=== PATIENT | male | born 1955 | race Hispanic/Latino ===

== ENCOUNTER → 2024-06-26 | Outpatient (CLI) | payer OTHER ==
[~2024-06-26] MED LIST: ALBU0.63 IH; BUSP7.5T7 PO; GABA300S3 PO; INSNPH SQ; INSREG SQ; LISI40TA9 PO; LORA10TA7 PO; METF-444 PO; OSEL75 PO; PRED20TA3 PO; ROSU5TAB51 PO
--- NOTE | 2024-06-26 11:24 | HMCIMG ---
KNEE 3VWS LT HISTORY: Knee pain COMPARISON: None TECHNIQUE: 3 images of left knee were obtained. FINDINGS: There is no acute displaced fracture or dislocation. There is soft tissue swelling. Degenerative changes are seen. IMPRESSION: 1. Findings as described above.
--- NOTE | 2024-06-26 11:24 | HMCIMG ---
LUMBAR SPINE 2-3VWS HISTORY: Low back pain COMPARISON: None FINDINGS: 3 images of lumbar spine were obtained. Grade 1 anterolisthesis is seen at the L4-5 level. Disc space narrowing is seen at the L5-S1 level. Anterior osteophytes are seen. There are degenerative changes with spondylosis. There is straightening of normal lordotic curvature which may be related to muscle spasm or positioning. No loss of vertebral height is seen. No fracture or dislocation is seen. Degenerative changes are seen. IMPRESSION: 1. No fracture is seen. DJD.
== END | disposition home or self-care (01) ==
LOC: LAB 09:40
PROVIDERS: ATTEND Internal Medicine
DX: M17.12 Unilateral primary osteoarthritis, left knee (principal); M47.816 Spondylosis without myelopathy or radiculopathy, lumbar region; M48.07 Spinal stenosis, lumbosacral region; M25.78 Osteophyte, vertebrae
CPT/HCPCS: 72100; 73562

== ENCOUNTER → 2024-08-29 | Outpatient (CLI) | payer OTHER ==
[~2024-08-29] MED LIST changes: -ALBU0.63 IH; +ALBU90AE IH; +FLUT16H NS; -GABA300S3 PO; +LEVO-70 PO; +METR-172 PO; +NPH,100V11 SQ; -OSEL75 PO; -PRED20TA3 PO
[2024-08-29 21:49] VITALS: PULSE 60; RESP 20
[2024-08-29 22:30] VITALS: PULSE 52; RESP 10
[2024-08-29 23:00] VITALS: PULSE 56; RESP 10
[2024-08-29 23:30] VITALS: PULSE 52; RESP 16
[2024-08-30] VITALS (9 sets, daily range): PULSE 48–58; RESP 4–18
== END | disposition home or self-care (01) ==
LOC: SLP 19:36
PROVIDERS: ATTEND Internal Medicine
DX: G47.33 Obstructive sleep apnea (adult) (pediatric) (principal); I13.10 Hypertensive heart and chronic kidney disease without heart failure, with stage 1 through stage 4 chronic kidney disease, or unspecified chronic kidney disease; E11.22 Type 2 diabetes mellitus with diabetic chronic kidney disease; N18.4 Chronic kidney disease, stage 4 (severe); R35.0 Frequency of micturition; E66.9 Obesity, unspecified
CPT/HCPCS: 95810

== ENCOUNTER → 2024-09-03 | Outpatient (CLI) | payer OTHER ==
[2024-09-03] VITALS (13 sets, daily range): PULSE 54–63; RESP 9–19
[2024-09-04] VITALS (12 sets, daily range): PULSE 52–64; RESP 14–21
== END | disposition home or self-care (01) ==
LOC: SLP 18:48
PROVIDERS: ATTEND Internal Medicine
DX: G47.33 Obstructive sleep apnea (adult) (pediatric) (principal); G47.01 Insomnia due to medical condition; I13.10 Hypertensive heart and chronic kidney disease without heart failure, with stage 1 through stage 4 chronic kidney disease, or unspecified chronic kidney disease; N18.9 Chronic kidney disease, unspecified
CPT/HCPCS: 95811

== ENCOUNTER 2025-01-08 07:52 | Observation (INO) | payer OTHER ==
[~2025-01-08] VITALS: Ht 157.5 cm; Wt 98.6 kg
--- NOTE | 2025-01-08 08:16 | ERN ---
General Chief Complaint: Fever Stated Complaint: FEVER Time Seen by MD: 07:58 Source: patient, family History of Present Illness Initial Comments Patient is a 69 y/o male here for evaluation of fever and diarrhea . Patient states he has been having fever since yesterday aswell as several episodes of diarrhea. Patient has hx of htn, dm, and hypercholesteremia. Allergies: Coded Allergies: No Known Drug Allergies (Unverified Allergy, Unknown, 12/15/23) Home Meds Active Scripts Metronidazole (Metronidazole) 500 Mg Tablet, 1 TAB PO BID for 5 Days, #10 TAB 0 Refills Prov:JONATHAN COREA MD 07/18/24 Levofloxacin (Levofloxacin) 500 Mg Tablet, 1 TAB PO DAILY for 5 Days, #5 TAB 0 Refills Prov:JONATHAN COREA MD 07/18/24 Fluticasone Propionate (Flonase Nasal [place]) 50 Mcg/Actuation [place], 2 SPRAY NS DAILY PRN for allergies for 30 Days, #16 GM 0 Refills Prov:JONATHAN COREA MD 07/11/24 Albuterol Sulfate (Proair Respiclick) 90 Mcg Aer.pow.ba, 2 PUFF IH Q4HPRN PRN for shortness of breath for 90 Days, #1 EACH 0 Refills Prov:JONATHAN COREA MD 07/11/24 NPH, Human Insulin Isophane (Novolin N) 100 Unit/Ml Vial, 40 UNITS SQ PM, #3 VIAL Prov:JONATHAN COREA MD 07/11/24 NPH, Human Insulin Isophane (Humulin/Novolin NPH) 100 Unit/Ml Inj, 45 UNITS SQ AM, #30 ML Prov:JONATHAN COREA MD 07/11/24 Insulin Regular, Human (Novolin R) 100 Unit/Ml Vial, 15 UNITS SQ TID, #30 ML Prov:JONATHAN COREA MD 07/11/24 Metformin HCl (Metformin HCl) 500 Mg Tablet, 500 MG PO BID, #60 TAB 1 Refill Prov:JONATHAN COREA MD 12/16/23 Loratadine (Loratadine) 10 Mg Tablet, 10 MG PO DAILY PRN for NASAL CONGESTION, #30 TAB 1 Refill Prov:JONATHAN COREA MD 12/16/23 Reported Medications Rosuvastatin Calcium (Rosuvastatin Calcium) 5 Mg Tablet, 1 TAB PO DAILY 12/15/23 Buspirone HCl (Buspirone HCl) 7.5 Mg Tablet, 1 TAB PO BID 12/15/23 Lisinopril (Lisinopril) 40 Mg Tablet, 1 TAB PO DAILY 12/15/23 Past Medical History Past Medical History: Diabetes-Type II, High Cholesterol, Hypertension Past Surgical History: Cholecystectomy Results Laboratory and Microbiology Lab and Micro Result Laboratory Tests Test 01/08/25 08:14 01/08/25 08:41 01/08/25 09:41 White Blood Count 9.9 K/uL (4.8-10.8) Red Blood Count 4.95 MIL/uL (4.50-6.20) Hemoglobin 13.0 g/dL (14.0-18.0) L Hematocrit 40.9 % (42-54) L Mean Corpuscular Volume 82.6 fL (79-99) Mean Corpuscular Hemoglobin 26.3 pg (27.0-33.0) L Mean Corpuscular Hemoglobin Concent 31.8 g/dL (32.0-36.0) L Red Cell Distribution Width 13.7 % (11.0-15.5) Platelet Count 290 K/uL (130-400) Mean Platelet Volume 9.3 fL (7.5-10.5) Immature Granulocyte % (Auto) 0.4 % (0-1) Neutrophils (%) (Auto) 88.5 % (40.0-77.0) H Lymphocytes (%) (Auto) 3.8 % (21.0-51.0) L Monocytes (%) (Auto) 7.1 % (3.0-13.0) Eosinophils (%) (Auto) 0.0 % (0.0-8.0) Basophils (%) (Auto) 0.2 % (0.0-5.0) Neutrophils # (Auto) 8.8 K/uL (1.8-7.7) H Lymphocytes # (Auto) 0.4 K/uL (1.0-4.8) L Monocytes # (Auto) 0.7 K/uL (0.1-1.0) Eosinophils # (Auto) 0.00 K/uL (0.00-0.70) Basophils # (Auto) 0.02 K/uL (0.00-0.20) Absolute Immature Granulocyte (auto 0.04 K/uL (0-1) Nucleated Red Blood Cells 0.0 % (0.0-0.19) White Cell Morphology Comment See comments Sodium Level 136 mmol/L (136-145) Potassium Level 4.1 mmol/L (3.5-5.1) Chloride Level 100 mmol/L (101-111) L Carbon Dioxide Level 28 mmol/L (21-32) Blood Urea Nitrogen 13 mg/dL (7-18) Creatinine 0.8 mg/dL (0.5-1.3) Glomerular Filtration Rate Calc 95 mL/min (>90) Random Glucose 165 mg/dL (70-105) H Lactic Acid Level 1.1 mmol/L (0.8-2.5) Total Calcium 8.4 mg/dL (8.5-10.1) L Total Creatine Kinase 88 U/L (21-232) # Troponin I High Sensitivity 63 ng/L (4-75) Influenza Type A Antigen Negative For Type A Influenza Type B Antigen Negative For Type B SARS-CoV-2, RNA, NAAT NEGATIVE SARS CoV-2 Group A Streptococcus Rapid negative (NEGATIVE) Urine Color COLORLESS (YELLOW) Urine Appearance CLEAR (CLEAR) Urine pH 6.5 (5.0-8.0) Urine Specific [place] 1.005 (1.001-1.031) Urine Protein NEGATIVE mg/dL (NEGATIVE) Urine Glucose (UA) NEGATIVE mg/dL (NEGATIVE) Urine Ketones NEGATIVE mg/dL (NEGATIVE) Urine Occult Blood NEGATIVE (NEGATIVE) Urine Nitrate NEGATIVE (NEGATIVE) Urine Bilirubin NEGATIVE mg/dL (NEGATIVE) Urine Urobilinogen 0.2 mg/dL (0.2-1.0) Urine Leukocyte Esterase NEGATIVE Jose/uL Labs Reviewed?: Yes EKG/XRAY/US/CT/MRI X-RAY Comment [address] [address] IMAGING REPORT Signed PATIENT: MARLENA DELATORRE MR#: [id number] : 1955 SEX: M AGE: 69 LOCATION: [facility] ORDER [id number] STATUS: REG REPORT#: [id number] SERVICE 0 REASON: fever ORDERING PHYSICIAN: DREA CARDENAS MD PROCEDURE: CXR1VW - CHEST 1VW CHEST 1VW HISTORY: Fever of unknown origin COMPARISON: 07/15/2024 FINDINGS: A frontal projection of the chest was obtained. No acute pulmonary infiltrates is seen. The heart is borderline enlarged. All the lines and tubes are again seen in place. No evidence of aortic calcification is seen. IMPRESSION: 1. No acute pulmonary infiltrate is seen. DICTATED BY: KALIN GARVEY MD DATE: 01/08/25905 ELECTRONICALLY SIGNED BY: KALIN GARVEY MD DATE: 01/08/25915 [facility] MDM: Differential diagnosis: Seizures, sepsis, viral gastroenteritis, Rationale: Tests considered and ordered secondary to shared decision making include: labs, ECG and radiology Previous outside records reviewed: Old ER visits. Risk of complication and/or morbidity or mortality of patient management: None Medications-Per medication reconciliation Need for hospitalization: Patient does meet criteria for hospitalization. Need for emergency major/minor surgery: No There are no social concerns with this patient. Prescription drug management Prescriptions will include symptomatic care Patient's prior external medical records from other ER visits were reviewed by me as indicated. Prior testing and results from previous visits were reviewed. Prior tests were taken into account with medical decision making and resource utilization, independent historian/historians were used to obtain complete medical history. I independently interpreted the test that were performed, results were reviewed by me and considered findings on radiology if ordered. Medical management and examination interpretation discussions were had by mo wi other qualified healthcare professionals as indicated for the patient's care. Patient will be admitted under the care of hospitalist group for ongoing management of seizures and gastroenteritis. Patient became hypotensive after 30 mL/kilos of IV fluid resuscitation was started on Levophed blood pressure improved. ED Course Orders Procedure Category Date Status Time Cbc With Differential LAB 01/08/25 Complete 08: Blood Cult ASHELY 01/08/25 In Process 08:01 Urinalysis Profile LAB 01/08/25 Complete 08: Culture Urine ASHELY 01/08/25 In Process 08:01 0.9%Nacl 1000ml (Ns PHA 01/08/25 In Process 1000ml) 08:30 Creatine Kinase, Total LAB 01/08/25 Complete 08: Troponin I High LAB 01/08/25 Complete Sensitivity 08:01 Lactic Acid LAB 01/08/25 Complete 08:01 Basic Metabolic Panel LAB 01/08/25 Complete 08:01 Influenza Type A & B, LAB 01/08/25 Complete Rapid 08:01 Covid Rna Naat LAB 01/08/25 Complete 08:01 Rapid (Group A Strep) LAB 01/08/25 Complete 08:01 Ceftriaxone 1g Vial PHA 01/08/25 Complete (Rocephine 1g Inj) 08:30 Chest 1vw RAD 01/08/25 Resulted 08:01 Norepinephrin 4mg/Ns PHA 01/08/25 In Process 250ml (Levophed 4mg 09:30 Acetaminophen 500mg PHA 01/08/25 Complete Tab (Tylenol 500mg T 09:30 Current Medications Medications (Trade) Dose Ordered Sig/Jarret Route PRN Reason Start Time Stop Time Status Last Admin Dose Admin Acetaminophen (TYLenol 500MG TAB) 1,000 mg ONCE ONCE PO 01/08/25 09:30 01/08/25 09:31 DC 01/08/25 09:13 Ceftriaxone Sodium (ROCEphine 1G INJ) 1 gm ONCE ONCE IVPB 01/08/25 08:30 01/08/25 08:31 DC 01/08/25 08:18 Norepinephrine 250 ml @ 0 mls/hr PROTOCOL IV 01/08/25 09:30 02/07/25 09:29 01/08/25 09:18 Sodium Chloride 2,967 ml @ 989 mls/hr ONCE ONCE IV 01/08/25 08:30 01/08/25 11:29 01/08/25 08:18 Vital Signs Date Time Temp Pulse Resp B/P (MAP) Pulse Ox O2 Delivery O2 Flow Rate FiO2 01/08/25 09:18 93/33 01/08/25 09:18 102.0 81 19 90/29 94 Room Air* 0 21 01/08/25 09:13 102.0 01/08/25 08:15 102.0 105 21 74/30 94 Room Air* 0 01/08/25 07:54 102.9 111 18 118/55 94 Room Air 0 Critical Care Note Comments Critical Care Procedure Note Authorized and Performed by: me Total critical care time: Approximately 36 minutes Due to a high probability of clinically significant, life threatening deterioration, the patient required my highest level of preparedness to intervene emergently and I personally spent this critical care time directly and personally managing the patient. This critical care time included obtaining a history; examining the patient; pulse oximetry; ordering and review of studies; arranging urgent treatment with development of a management plan; evaluation of patient's response to treatment; frequent reassessment; and, discussions with other providers. This critical care time was performed to assess and manage the high probability of imminent, life-threatening deterioration that could result in multi-organ failure. It was exclusive of separately billable procedures and treating other patients and teaching time. Please see MDM section and the rest of the note for further information on patient assessment and treatment. DX & DISP Disposition: Inpatient Decision to Admit Time: 10:14 Departure Impression: Primary Impression: Dehydration Additional Impressions: Viral gastroenteritis, Sepsis, Hypotensive episode Condition: Stable Referrals: JONATHAN COREA MD (PCP) DREA CARDENAS MD January 08, 2025 08:16
[2025-01-08] MEDS: cefTRIAXone 1G VIAL IVPB ONE (08:18)
[2025-01-08] MEDS: [UNRECOGNIZED DRUG - OTHER] IV ONE (08:18)
[2025-01-08 08:24] LABS: BASOPHILS # (AUTO) 0.02 K/uL (0.00-0.20); BASOPHILS % (AUTO) 0.2 % (0.0-5.0); HEMATOCRIT 40.9 % (42-54); IMMATURE GRANULOCYTE ABSOLUTE 0.04 K/uL (0-1); LYMPHOCYTES # (AUTO) 0.4 K/uL (1.0-4.8); LYMPHOCYTES % (AUTO) 3.8 % (21.0-51.0); MEAN CORPUSCULAR HEMOGLOBIN 26.3 pg (27.0-33.0); MEAN CORPUSCULAR HGB CONC 31.8 g/dL (32.0-36.0); MEAN CORPUSCULAR VOLUME 82.6 fL (79-99); MONOCYTES # (AUTO) 0.7 K/uL (0.1-1.0); MONOCYTES % (AUTO) 7.1 % (3.0-13.0); NEUTROPHILS # (AUTO) 8.8 K/uL (1.8-7.7); NEUTROPHILS % (AUTO) 88.5 % (40.0-77.0); PLATELET COUNT (AUTO) 290 K/uL (130-400); RED BLOOD CELL COUNT(AUTO) 4.95 MIL/uL (4.50-6.20); RED CELL DISTRIBUTION WIDTH 13.7 % (11.0-15.5); WHITE BLOOD COUNT (AUTO) 9.9 K/uL (4.8-10.8)
[2025-01-08 08:48] LABS: CREATININE 0.8 mg/dL (0.5-1.3); POTASSIUM 4.1 mmol/L (3.5-5.1)
[2025-01-08 09:02] LABS: RAPID GROUP A STREP negative (NEGATIVE)
[2025-01-08 09:05] LABS: SARS-CoV-2, RNA, NAAT NEGATIVE SARS CoV-2 (NEGATIVE)
[2025-01-08 09:11] LABS: INFLUENZA TYPE A Negative For Type A (NEGATIVE); INFLUENZA TYPE B Negative For Type B (NEGATIVE)
[2025-01-08] MEDS: acetaMINOPHEN 500 MG TABLET PO ONE (09:13)
--- NOTE | 2025-01-08 09:16 | HMCIMG ---
CHEST 1VW HISTORY: Fever of unknown origin COMPARISON: 07/15/2024 FINDINGS: A frontal projection of the chest was obtained. No acute pulmonary infiltrates is seen. The heart is borderline enlarged. All the lines and tubes are again seen in place. No evidence of aortic calcification is seen. IMPRESSION: 1. No acute pulmonary infiltrate is seen.
[2025-01-08] MEDS: NOREPINEPHRIN 4MG/NS 250ML 250 ML IV SCH (09:18)
[2025-01-08 09:57] LABS: APPEARANCE,URINE CLEAR (CLEAR); BILIRUBIN,URINE NEGATIVE (NEGATIVE); COLOR,URINE COLORLESS (YELLOW); GLUCOSE, URINE (UA) NEGATIVE (NEGATIVE); KETONES,URINE NEGATIVE (NEGATIVE); LEUKOCYTE ESTERASE ,URINE NEGATIVE Leu/uL (NEGATIVE); NITRATE,URINE NEGATIVE (NEGATIVE); OCCULT BLOOD,URINE NEGATIVE (NEGATIVE); PH,URINE 6.5 (5.0-8.0); PROTEIN,URINE NEGATIVE (NEGATIVE); UROBILINOGEN,URINE 0.2 mg/dL (0.2-1.0)
[2025-01-08 10:02] LABS: ADD UA MICROSCOPIC NO
--- NOTE | 2025-01-08 11:29 | NUR ---
LEVOPHED STOPPED,BP 133/60 HR 81.
[2025-01-08] MEDS ORDERED: INSULIN humuLIN R 100 UNIT/ML 3ML SQ SCH (11:30)
[2025-01-08] MEDS ORDERED: BUSP7.5T7 PO (12:14)
[2025-01-08] MEDS ORDERED: INSREG SQ ×2 (12:14→12:17)
[2025-01-08] MEDS ORDERED: GABA300C PO (12:15)
[2025-01-08] MEDS ORDERED: LISI40TA9 PO (12:15)
[2025-01-08] MEDS ORDERED: ROSU5TAB51 PO (12:15)
[2025-01-08] MEDS ORDERED: MAG/ALUM/SIMETH 30 ML UDCUP PO PRN (12:30)
[2025-01-08] MEDS ORDERED: guaiFENesin-DM 200/20MG 10ML PO PRN (12:30)
[2025-01-08] MEDS ORDERED: acetaMINOPHEN 325 MG TAB PO PRN (12:30)
[2025-01-08] MEDS ORDERED: ondanSETRON 4MG INJ IV PRN (12:30)
[2025-01-08] MEDS ORDERED: LORATAdine 10 mg 10 MG TABLET PO PRN (12:30)
[2025-01-08] MEDS: 0.9%NACL 1000ML 1,000 ML IV SCH (12:31)
[2025-01-08] MEDS: levoFLOXacin 500 MG/D5W 100 ML 100 ML IV SCH (12:31)
--- NOTE | 2025-01-08 12:39 | NUR ---
ACHS BLOOD GLUCOSE 82.NO INSULIN COVERAGE NEEDED
[2025-01-08] MEDS ORDERED: GLUCAGON 1MG KIT 1 MG ML IM PRN (13:00)
[2025-01-08] MEDS ORDERED: miDODRine HCL 5 MG TABLET PO PRN (13:00)
[2025-01-08] MEDS ORDERED: busPIRone HCL 5 MG TABLET PO PRN (13:00)
[2025-01-08] MEDS ORDERED: DEXTROSE 50%-WATER 50 ML DISP.SYRIN IV PRN (13:00)
[2025-01-08] MEDS ORDERED: PoTASSium chloRIDE 20MEQ ER 20 MEQ ERTAB PO PRN (13:00)
[2025-01-08] MEDS ORDERED: PoTASSium chl 10% ELIXIR 20MEQ 20 MEQ/15 ML UDCUP PO PRN (13:00)
[2025-01-08] MEDS ORDERED: MAGNESIUM 2GM PREMIX 50ML 50 ML IV PRN (13:00)
[2025-01-08] MEDS ORDERED: LOPERAMIDE HCL 2 MG CAP PO PRN (13:00)
[2025-01-08] MEDS ORDERED: PoTASSium chloRIDE 20MEQ/100ML 100 ML IV PRN (13:00)
[2025-01-08] MEDS ORDERED: LOPERAMIDE 1 MG/7.5 ML UDCUP PO PRN (13:00)
[2025-01-08] MEDS ORDERED: ALBUTEROL SULFATE IH PRN (13:00)
--- NOTE | 2025-01-08 13:30 | HP ---
HISTORY AND PHYSICAL Date of Visit: January 08, 2025 Time of Visit: 13:21 ADMISSION DATE: January 08, 2025 at 10:31 CC: DIARRHEA HPI: Patient is a 69 y/o male here for evaluation of fever and diarrhea . Patient states he has been having fever since yesterday as well as several episodes of diarrhea. Patient has hx of htn, dm, and hypercholesteremia. He denied any nausea vomiting. No abdominal pain, SOB palpitations. Has been travelling to [facility]. No other exposures. Has been feeling very weak and decided to go to the ER for evaluation where he was found to be very hypotensive. 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 TROY / INSOMNIA SEDATIVE DEPENDENCE DM II W HYPERGLYCEMIA ON INSULIN DM II WITH POLYNEUROPATHY PVD / ATHEROSCLEROSIS OF [place] ARTERIES OF EXTREMITIES, RIGHT LEG DJD MULTP SITES MALE HYPOGONADISM IRON DEF ANEMIA GERD OTHER SPONDYLOSIS W RADICULOPATHY, CERVICAL AND LUMBAR REGION SOCIAL HISTORY: LIVES LOCALLY AND NO CURRENT ALCOHOL AND DRUG ABUSE FAMILY HISTORY: + DM HTN ^ Patient History: Diabetes mellitus MOTHER FATHER BROTHER, BROTHER, BROTHER, SISTER Hypertension MOTHER FATHER BROTHER, BROTHER, BROTHER, SISTER No Family History of: Alzheimer's disease Asthma Carcinomas Cardiovascular disease Chronic obstructive pulmonary disease Completed stroke Immunocompromised state Sudden Allergies: Coded Allergies: No Known Drug Allergies (Unverified Allergy, Unknown, 12/15/23) Scheduled Insulin Regular, Human (Novolin R), 5 UNITS SQ TID Lisinopril (Lisinopril), 40 MG PO DAILY Metformin HCl (Metformin HCl), 500 MG PO BID NPH, Human Insulin Isophane (Humulin/Novolin NPH), 45 UNITS SQ AM NPH, Human Insulin Isophane (Novolin N), 40 UNITS SQ PM Rosuvastatin Calcium (Rosuvastatin Calcium), 5 MG PO HS Scheduled PRN Albuterol Sulfate (Proair Respiclick), 2 PUFF IH Q4HPRN PRN for shortness of breath Buspirone HCl (Buspirone HCl), 1 TAB PO BID PRN for ANXIETY/AGITATION Gabapentin (Neurontin), 300 MG PO BID PRN for neuropathy Loratadine (Loratadine), 10 MG PO DAILY PRN for NASAL CONGESTION Discontinued Medications Fluticasone Propionate (Flonase Nasal [place]), 2 SPRAY NS DAILY PRN for allergies Insulin Regular, Human (Novolin R), 15 UNITS SQ TID Discontinued Reason: Prescription changed Levofloxacin (Levofloxacin), 1 TAB PO DAILY Lisinopril (Lisinopril), 1 TAB PO DAILY, (Reported) Metronidazole (Metronidazole), 1 TAB PO BID NPH, Human Insulin Isophane (Novolin N), 40 UNITS SQ PM Rosuvastatin Calcium (Rosuvastatin Calcium), 1 TAB PO DAILY, (Reported) Review of Systems Normal Constitutional:, Normal Eyes:, Normal Ear/Nose/Mouth/Throat, Normal Cardiovascular:, Normal Respiratory:, Normal Genitourinary:, Normal Integumentary:, Normal Musculoskeletal:, Normal Neurological:, Normal Psychological:, Normal Endocrine:, Normal Hematologic/Lymphatic:, Normal Allergic/Immunologic:; Abnormal Gastrointestinal: (REFER TO HPI WITH DIARRHEA ) Physical Exam Vital Signs Vital Signs Date Time Temp Pulse Resp B/P (MAP) Pulse Ox O2 Delivery O2 Flow Rate FiO2 01/08/25 07:54 102.9 111 18 118/55 94 Room Air 0 01/08/25 08:15 21 Appearance: Obese Eyes: Clear, PERRL, EOM Normal Ear/Nose/Mouth/Throat: Landmarks WNL Neck: Symmetric, trach midline Cardiovascular: PMI WNL, Regular Rate, Regular Rhythm G.I.: Normal bowel sounds, No rebound tenderness Lymphatic: No lymphadenopathy neck, No lymphadenopathy axilla, No lymphadenopathy groin Musculoskeletal: Normal ROM Breasts: Symmetrical, no masses Skin: No rash/ulcers Neurology: Nerves I-XII intact, Sensation WNL Psychology: Insight WNL, Orientation WNL, Memory WNL Diagnostics Laboratory Tests Test 01/08/25 08:14 01/08/25 08:41 01/08/25 09:41 01/08/25 12:39 Range/Units White Blood Count 9.9 4.8-10.8 K/uL Red Blood Count 4.95 4.50-6.20 MIL/uL Hemoglobin 13.0 14.0-18.0 g/dL Hematocrit 40.9 42-54 % Mean Corpuscular Volume 82.6 79-99 fL Mean Corpuscular Hemoglobin 26.3 27.0-33.0 pg Mean Corpuscular Hemoglobin Concent 31.8 32.0-36.0 g/dL Red Cell Distribution Width 13.7 11.0-15.5 % Platelet Count 290 130-400 K/uL Mean Platelet Volume 9.3 7.5-10.5 fL Immature Granulocyte % (Auto) 0.4 0-1 % Neutrophils (%) (Auto) 88.5 40.0-77.0 % Lymphocytes (%) (Auto) 3.8 21.0-51.0 % Monocytes (%) (Auto) 7.1 3.0-13.0 % Eosinophils (%) (Auto) 0.0 0.0-8.0 % Basophils (%) (Auto) 0.2 0.0-5.0 % Neutrophils # (Auto) 8.8 1.8-7.7 K/uL Lymphocytes # (Auto) 0.4 1.0-4.8 K/uL Monocytes # (Auto) 0.7 0.1-1.0 K/uL Eosinophils # (Auto) 0.00 0.00-0.70 K/uL Basophils # (Auto) 0.02 0.00-0.20 K/uL Absolute Immature Granulocyte (auto 0.04 0-1 K/uL Nucleated Red Blood Cells 0.0 0.0-0.19 % White Cell Morphology Comment See comments Sodium Level 136 136-145 mmol/L Potassium Level 4.1 3.5-5.1 mmol/L Chloride Level 100 101-111 mmol/L Carbon Dioxide Level 28 21-32 mmol/L Blood Urea Nitrogen 13 7-18 mg/dL Creatinine 0.8 0.5-1.3 mg/dL Glomerular Filtration Rate Calc 95 >90 mL/min Random Glucose 165 70-105 mg/dL Lactic Acid Level 1.1 0.8-2.5 mmol/L Total Calcium 8.4 8.5-10.1 mg/dL Total Creatine Kinase 88 21-232 U/L Troponin I High Sensitivity 63 4-75 ng/L Influenza Type A Antigen Negative For Type A NEGATIVE Influenza Type B Antigen Negative For Type B NEGATIVE SARS-CoV-2, RNA, NAAT NEGATIVE SARS CoV-2 NEGATIVE Group A Streptococcus Rapid negative NEGATIVE Urine Color COLORLESS YELLOW Urine Appearance CLEAR CLEAR Urine pH 6.5 5.0-8.0 Urine Specific [place] 1.005 1.001-1.031 Urine Protein NEGATIVE NEGATIVE mg/dL Urine Glucose (UA) NEGATIVE NEGATIVE mg/dL Urine Ketones NEGATIVE NEGATIVE mg/dL Urine Occult Blood NEGATIVE NEGATIVE Urine Nitrate NEGATIVE NEGATIVE Urine Bilirubin NEGATIVE NEGATIVE mg/dL Urine Urobilinogen 0.2 0.2-1.0 mg/dL Urine Leukocyte Esterase NEGATIVE NEGATIVE Jose/uL Whole Blood Glucose 82 70-110 MG/DL Assessment/Plan Assessment/Plan ASSESSMENT: THIS IS A 69 YR OLD WITH MAN WITH HISTORY OF OBESITY HYPOVENTILATION SYNDROME MORBID OBESITY HYPERLIPIDEMIA 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 TROY / INSOMNIA SEDATIVE DEPENDENCE DM II W HYPERGLYCEMIA ON INSULIN DM II WITH POLYNEUROPATHY PVD / ATHEROSCLEROSIS OF [place] ARTERIES OF EXTREMITIES, RIGHT LEG DJD MULTP SITES MALE HYPOGONADISM IRON DEF ANEMIA GERD OTHER SPONDYLOSIS W RADICULOPATHY, CERVICAL AND LUMBAR REGION HE PRESENTED WITH ACUTE GASTROENTERITIS AND SUSPECTED EARLY SEPSIS WITH HYPOTENSION PLAN: CONTINUES WITH IVF WEAN PRESSORS TOLERATED AFTER HYDRATION BLOOD AND URINE CULTURES CXR W/O INFILTRATES STARTED ON IV ANTIBIOTICS STOP METFORMIN AND SCHEDULED INSULIN CLEAR LIQUID DIET AND ADVANCE TOLERATED SUPPLEMENT ELECTROLYTES INCREASE ACTIVITY TOLERATED GLUCOSE MONITORING AND ADDITIONAL INSULIN NEEDED TEDS SCD AND LOVENOX FOR DVT PROPHYLAXIS PPI FOR STRESS ULCER PROPHYLAXIS SUPPORTIVE MEASURES CONT BIPAP QHS CASE MANAGEMENT FOR D/C PLANNING JONATHAN COREA MD January 08, 2025 13:30
--- NOTE | 2025-01-08 14:37 | NUR ---
DCP: HOME Pt currently lives with his sps Lia Hathaway [phone]. Pt denied any insecurities with food, care home, and/or utilities. Pt does not have DME, home health, or provider services. Pt is able to complete ADLs independently. PCP is Janneth Connors and uses Ashleigh Toscano for any RX needs. [facility] pt will want to return home and family can assist with transportation. Addendum: 01/08/25 at 1440 by DEBBIE MACKAY SS Amended: Links added.
[2025-01-08] MEDS: INSULIN humuLIN R 100 UNIT/ML 3ML SQ SCH (16:23)
[2025-01-08] MEDS: acetaMINOPHEN 325 MG TAB PO PRN (17:43)
[2025-01-08 19:04] VITALS: PULSE 82; RESP 18; O2SAT 96
[2025-01-08] MEDS: tamSULOsin HCL 0.4 MG CAP.ER.24H PO SCH (21:08)
[2025-01-08] MEDS: atorVAStatin 10 MG TABLET PO SCH (21:08)
[2025-01-08 21:16] VITALS: O2SAT 95
--- NOTE | 2025-01-08 21:41 | NUR ---
REPORT GIVEN TO ESVIN ALFARO
[2025-01-08 21:46] VITALS: TEMP 100
[2025-01-08 21:50] VITALS: BP 163/70; PULSE 83; RESP 20; TEMP 98.1
[2025-01-09] VITALS: BP 162/63; PULSE 73; RESP 20; TEMP 98.6
--- NOTE | 2025-01-09 01:55 | NUR ---
bipap attempted with a new mask size medium as small was not tolerated, settings ordered tried,pt removed mask. States he feels suffocated. Settings adjusted, pt removed mask again states he will not be using his machine and went to sleep. Addendum: 01/09/25 at 0156 by EDGAR HOLLIS RT Amended: Links added.
[2025-01-09 04:00] VITALS: BP 144/69; PULSE 85; RESP 20; TEMP 98.5
[2025-01-09 04:49] LABS: HEMATOCRIT 35.2 % (42-54); MEAN CORPUSCULAR HEMOGLOBIN 26.5 pg (27.0-33.0); MEAN CORPUSCULAR VOLUME 85.4 fL (79-99); PLATELET COUNT (AUTO) 218 K/uL (130-400); RED BLOOD CELL COUNT(AUTO) 4.12 MIL/uL (4.50-6.20); RED CELL DISTRIBUTION WIDTH 13.6 % (11.0-15.5); WHITE BLOOD COUNT (AUTO) 5.2 K/uL (4.8-10.8)
[2025-01-09 05:01] LABS: CREATININE 0.6 mg/dL (0.5-1.3); POTASSIUM 3.6 mmol/L (3.5-5.1)
[2025-01-09 08:00] VITALS: BP 119/71; PULSE 78; RESP 19; TEMP 98.3
[2025-01-09 08:12] VITALS: PULSE 82; RESP 18; O2SAT 96
[2025-01-09] MEDS: levoFLOXacin 500 MG TABLET PO SCH (10:40)
[2025-01-09] MEDS: PANTOPrazole 40 MG TAB DR PO SCH (10:40)
[2025-01-09] MEDS: ENOXAPARIN SODIUM 40 MG/0.4 ML SYRINGE SQ SCH (10:41)
[2025-01-09 12:00] VITALS: BP 131/65; PULSE 76; RESP 19; TEMP 98.3
[2025-01-09] MEDS ORDERED: LEVO-70 PO (12:27)
[2025-01-09 15:50] VITALS: BP 134/63; PULSE 70; RESP 19; TEMP 98.1
--- NOTE | 2025-01-09 17:04 | DS ---
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 No acute pulmonary infiltrates is seen. The heart is borderline enlarged. All the lines and tubes are again seen in place. No evidence of aortic calcification is seen. IMPRESSION: No acute pulmonary infiltrate is seen. HOSPITAL COURSE: THIS IS A 69 YR OLD MAN WITH THE ABOVE PMH WHO PRESENTED WITH ACUTE GASTROENTERITIS AND SUSPECTED EARLY SEPSIS WITH HYPOTENSION AND SEVERE DEHYDRATION. HE WAS BOLUSED 3 LITERS OF IVF AND STARTED ON IV ANTIBIOTICS WITH LEVAQUIN. HE DID NEED LEVOPHED WELL FOR HEMODYNAMIC STABILITY IN THE ER AND WAS WEANED OFF GRADUALLY AFTER HE WAS ADEQUATELY HYDRATED. HE WAS KEPT OFF OF HIS LISINOPRIL AND METFORMIN AND HIS DIET AND ACTIVITY WERE ADVANCED TOLERATED WITHOUT DIFFICULTY. HIS BLOOD AND URINE CULTURES WERE NEGATIVE AND HE WAS ANXIOUS TO BE RELEASED THE FOLLOWING DAY AND DISCHARGED HOME IN STABLE CONDITION. DIET: ADA HEART HEALTHY ACTIVITY: PROGRESSIVE AMBULATION WITH WALKER CONDITION: STABLE EQUIPMENT: NONE FOLLOW UP APPOINTMENT(S): DR CONNORS IN 2-5 DAYS DISPOSITION: HOME CODE STATUS: FULL MEDICATION RECONCILIATION : Home Medications were reconciled with hospital medications upon discharge and discussed with patient and/or responsible constitution party. ADDED LEVAQUIN 500 MG PO RADHA;Y X 1 WEEK HOLD LISINOPRIL UNTIL FURTHER NOTICE HOLD METFORMIN UNTIL FURTHER NOTICE MAY ADJUST INSULIN AT HOME DEPENDING ON ORAL INTAKE * Home Meds Active Scripts Levofloxacin (Levofloxacin) 500 Mg Tablet, 1 TAB PO DAILY for 7 Days, #7 TAB 0 Refills Prov:JONATHAN CONNORS MD 01/09/25 Insulin Regular, Human (Novolin R) 100 Unit/Ml Vial, 5 UNITS SQ TID, #30 ML Prov:JONATHAN CONNORS MD 01/08/25 Gabapentin (Neurontin) 300 Mg Capsule, 300 MG PO BID PRN for neuropathy, #60 CAP Prov:JONATHAN CONNORS MD 01/08/25 Rosuvastatin Calcium (Rosuvastatin Calcium) 5 Mg Tablet, 5 MG PO HS, #90 TAB Prov:JONATHAN CONNORS MD 01/08/25 Lisinopril (Lisinopril) 40 Mg Tablet, 40 MG PO DAILY, #90 TAB Prov:JONATHAN CONNORS MD 01/08/25 Buspirone HCl (Buspirone HCl) 7.5 Mg Tablet, 1 TAB PO BID PRN for ANXIETY/AGITATION, #60 TAB Prov:JONATHAN CONNORS MD 01/08/25 Albuterol Sulfate (Proair Respiclick) 90 Mcg Aer.pow.ba, 2 PUFF IH Q4HPRN PRN for shortness of breath for 90 Days, #1 EACH 0 Refills Prov:JONATHAN CONNORS MD 07/11/24 NPH, Human Insulin Isophane (Humulin/Novolin NPH) 100 Unit/Ml Inj, 45 UNITS SQ AM, #30 ML Prov:JONATHAN CONNORS MD 07/11/24 Metformin HCl (Metformin HCl) 500 Mg Tablet, 500 MG PO BID, #60 TAB 1 Refill Prov:JONATHAN CONNORS MD 12/16/23 Loratadine (Loratadine) 10 Mg Tablet, 10 MG PO DAILY PRN for NASAL CONGESTION, # 30 TAB 1 Refill Prov:JONATHAN CONNORS MD 12/16/23 Discontinued Reported Medications Rosuvastatin Calcium (Rosuvastatin Calcium) 5 Mg Tablet, 1 TAB PO DAILY 12/15/23 Lisinopril (Lisinopril) 40 Mg Tablet, 1 TAB PO DAILY 12/15/23 Discontinued Scripts NPH, Human Insulin Isophane (Novolin N) 100 Unit/Ml Vial, 40 UNITS SQ PM, #3 VIAL Prov:JONATHAN CONNORS MD 01/08/25 Metronidazole (Metronidazole) 500 Mg Tablet, 1 TAB PO BID for 5 Days, #10 TAB 0 Refills Prov:JONATHAN CONNORS MD 07/18/24 Levofloxacin (Levofloxacin) 500 Mg Tablet, 1 TAB PO DAILY for 5 Days, #5 TAB 0 Refills Prov:JONATHAN CONNORS MD 07/18/24 Fluticasone Propionate (Flonase Nasal [place]) 50 Mcg/Actuation [place], 2 SPRAY NS DAILY PRN for allergies for 30 Days, #16 GM 0 Refills Prov:JONATHAN CONNORS MD 07/11/24 NPH, Human Insulin Isophane (Novolin N) 100 Unit/Ml Vial, 40 UNITS SQ PM, #3 VIAL Prov:JONATHAN CONNORS MD 07/11/24 Insulin Regular, Human (Novolin R) 100 Unit/Ml Vial, 15 UNITS SQ TID, #30 ML Prov:JONATHAN CONNORS MD 07/11/24 JONATHAN CONNORS MD January 09, 2025 17:04
== END 2025-01-09 18:00 | disposition home or self-care (01) ==
LOC: EDH 07:52 → INTOOBSV 10:31 → EDHIP 10:31 → 3AH 21:50
PROVIDERS: ADMIT Internal Medicine; ATTEND Internal Medicine
DX: A08.4 Viral intestinal infection, unspecified (principal); Z20.822 Contact with and (suspected) exposure to COVID-19; E86.0 Dehydration; E66.01 Morbid (severe) obesity due to excess calories; E78.5 Hyperlipidemia, unspecified; I13.10 Hypertensive heart and chronic kidney disease without heart failure, with stage 1 through stage 4 chronic kidney disease, or unspecified chronic kidney disease; E11.22 Type 2 diabetes mellitus with diabetic chronic kidney disease; N18.1 Chronic kidney disease, stage 1; G47.00 Insomnia, unspecified; F02.818 Dementia in other diseases classified elsewhere, unspecified severity, with other behavioral disturbance; E11.65 Type 2 diabetes mellitus with hyperglycemia; E11.42 Type 2 diabetes mellitus with diabetic polyneuropathy; E11.51 Type 2 diabetes mellitus with diabetic peripheral angiopathy without gangrene; K52.9 Noninfective gastroenteritis and colitis, unspecified; D50.9 Iron deficiency anemia, unspecified; M54.16 Radiculopathy, lumbar region; K21.9 Gastro-esophageal reflux disease without esophagitis; Z68.39 Body mass index [BMI] 39.0-39.9, adult; Z79.4 Long term (current) use of insulin; Z79.84 Long term (current) use of oral hypoglycemic drugs; Z79.899 Other long term (current) drug therapy; Z86.73 Personal history of transient ischemic attack (TIA), and cerebral infarction without residual deficits; Z98.890 Other specified postprocedural states; Z90.49 Acquired absence of other specified parts of digestive tract
CPT/HCPCS: 99291; 96365; 96366; 71045; 96367; 87635; 96361; 96368; 82550; 84484; 80048 ×2; 85025; 87040 ×2; 87086; 87880; 87804 ×2; 82948 ×6; 83605; 81003; 36415 ×2; 96372; 85027; G0378; J3490; J1956; J7030 ×4; J0696; J1815 ×2; J1650; 96375